=== PATIENT | female | born 1995 | race American Indian/Alaskan Native ===

== ENCOUNTER 2019-06-03 13:43 | Emergency (ER) | payer MEDICAID ==
[2019-06-03 13:59] VITALS: BP 111/66
--- NOTE | 2019-06-03 14:14 | Event Note ---
ED Screening Note Date of service: 06/03/19 Time: 14:12 ED Screening Note: 24 y/o old female comes in for left eye trauma . This initial assessment/diagnostic orders/clinical plan/treatment(s) is/are subject to change based on patients health status, clinical progression and re- assessment by fellow clinical providers in the ED. Further treatment and workup at subsequent clinical providers discretion. Patient/guardian urged not to elope from the ED as their condition may be serious if not clinically assessed and managed. Initial orders include:
[2019-06-03 14:39] LABS: HCG Qualitative,Urine Positive (Negative)
--- NOTE | 2019-06-03 15:54 | Emergency Department Report ---
ED Eye Problem HPI - General Chief complaint: Eye Problems Stated complaint: L EYE PAIN Time Seen by Provider: 06/03/19 15:40 Source: patient Mode of arrival: Ambulatory Limitations: No Limitations - History of Present Illness Initial comments: This is a 24-year-old female who presents to ED complaining of left eye redness and orbital bruising 5 days. Patient states on Saturday she accidentally slipped in fell hitting the side of her face on the metal part of her bed. Patient states*then occurs she had no loss of consciousness. Patient states she didn't have any pain at that time. Patient states the pain has worsened since Saturday. Patient states that left eye redness began a couple of days ago. Patient states that when the incident happened on Saturday she went to see her primary care physician and at that time the symptoms were not this bad. Patient denies loss of vision, blurry vision, laceration to the face or eye, headache. MD chief complaint: eye redness Location: left eye Place: home Eye Symptoms: blurry vision (resolved now) Severity: moderate Severity scale (0 -10): 5 If Pain, Quality: aching, throbbing Associated Symptoms: none - Related Data Previous Rx's Medication Instructions Recorded Last Taken Type Omeprazole [PriLOSEC] 20 mg PO BID #30 cap 09/17/14 Unknown Rx Allergies Allergy/AdvReac Type Severity Reaction Status Date / Time No Known Allergies Allergy Unverified 09/17/14 11:21 ED Review of Systems ROS: Stated complaint: L EYE PAIN Other details as noted in HPI Comment: All other systems reviewed and negative ED Past Medical Hx - Past Medical History Previous Medical History?: No - Surgical History Past Surgical History?: No - Social History Smoking Status: Never Smoker Substance Use Type: None - Medications Home Medications: Home Medications Medication Instructions Recorded Confirmed Last Taken Type Omeprazole [PriLOSEC] 20 mg PO BID #30 cap 09/17/14 Unknown Rx ED Physical Exam - General Limitations: No Limitations General appearance: alert, in no apparent distress - Head Head exam: Present: atraumatic, normocephalic - Eye Eye exam: Present: normal appearance, PERRL, EOMI, conjunctival injection (left eye) Pupils: Present: normal accommodation - ENT ENT exam: Present: normal exam, mucous membranes moist - Neck Neck exam: Present: normal inspection - Respiratory Respiratory exam: Present: normal lung sounds bilaterally. Absent: respiratory distress - Cardiovascular Cardiovascular Exam: Present: regular rate, normal rhythm. Absent: systolic murmur, diastolic murmur, rubs, gallop - GI/Abdominal GI/Abdominal exam: Present: soft, normal bowel sounds - Extremities Exam Extremities exam: Present: normal inspection - Back Exam Back exam: Present: normal inspection - Neurological Exam Neurological exam: Present: alert, oriented X3 - Psychiatric Psychiatric exam: Present: normal affect, normal mood - Skin Skin exam: Present: warm, dry, intact, normal color. Absent: rash ED Course Vital Signs 06/03/19 13:56 Temperature 98.2 F Pulse Rate 81 Respiratory 18 Rate Blood Pressure 111/66 O2 Sat by Pulse 98 Oximetry ED Medical Decision Making - Medical Decision Making 24-year-old female presents with conjunctival hemorrhage of the left eye. Patient eye muscles are intact. CT scan of the facial bones showed no fracture or dislocation or orbital fracture/bleeding. Discussed case with findings with the patient. Discussed patient to follow-up with a primary care physician. Discussed the patient has symptoms that take up to week or 2 to get better. Vision is intact bilaterally. Discuss he application to person on that sheet. Vital signs are normal patient is in no acute distress. Critical care attestation.: If time is entered above; I have spent that time in minutes in the direct care of this critically ill patient, excluding procedure time. ED Disposition Clinical Impression: Conjunctival hemorrhage of left eye Disposition: DC-01 TO HOME OR SELFCARE Is pt being admited?: No Does the pt Need Aspirin: No Condition: Stable Instructions: Conjunctivitis (ED) Additional Instructions: Make sure to follow up with the primary care physician as discussed. Apply a warm compression 3 times a day. If you have any worsening symptoms or develop new symptoms please return to ED immediately. Referrals: VANI LANCASTER MD [Primary Care Provider] - 3-5 Days [facility] [Outside] - 3-5 Days [facility] [Outside] - 3-5 Days Forms: Work/School Release Form(ED) Time of Disposition: 17:10
--- NOTE | 2019-06-03 16:46 | Cat Scan Report ---
CT MAXILLOFACIAL WITHOUT CONTRAST INDICATION / CLINICAL INFORMATION: Trauma. Patient fell sustaining facial injury. Facial pain. TECHNIQUE: All CT scans at this location are performed using CT dose reduction for ALARA by means of automated e xposure control. COMPARISON: None available. FINDINGS: FACIAL BONES: No fracture or other significant abnormality. PARANASAL SINUSES: Paranasal sinuses are free from inflammatory mucosal disease. No evidence of hemor rhage in the paranasal sinuses. NASAL CAVITY: No abnormalities are identified. The air passageways of the nasal cavity and OM U are a dequately aerated. ORBITS: The orbits have an unremarkable appearance on this noncontrast CT facial bones study. Visualized dictaphone operator space structures have an unremarkable appearance. VISUALIZED INTRACRANIAL STRUCTURES: No significant abnormality. ADDITIONAL FINDINGS: None. IMPRESSION: 1. No indication of facial fracture or other significant abnormality. Signer Name: Vinnie Alford MD Signed: 06/03/2019 4:42 PM Workstation Name: [id number]
== END 2019-06-03 17:30 | disposition home or self-care (01) ==
LOC: ED 13:43
DX: S00.12XA Contusion of left eyelid and periocular area, initial encounter (principal); H57.89 Other specified disorders of eye and adnexa; W22.8XXA Striking against or struck by other objects, initial encounter; Y93.89 Activity, other specified; Y92.89 Other specified places as the place of occurrence of the external cause; Y99.8 Other external cause status
CPT/HCPCS: 70486; 81025

== ENCOUNTER 2019-06-25 13:29 | Emergency (ER) | payer MEDICAID ==
--- NOTE | 2019-06-25 13:58 | Emergency Department Report ---
Blank Doc - Documentation Documentation: This is a 24-year-old female that presents with headache, nausea and vomiting. Stated believes its from mold. Patient stated is about 8 weeks . This initial assessment/diagnostic orders/clinical plan/treatment(s) is/are subject to change based on patient's health status, clinical progression and re- assessment by fellow clinical providers in the ED. Further treatment and workup at subsequent clinical providers discretion. Patient/guardians urged not to elope from the ED as their condition may be serious if not clinically assessed and managed. Initial orders include: 1- Patient sent to [facility] for further evaluation and treatment 2- labs
[2019-06-25 13:59] VITALS: BP 120/58
[2019-06-25 14:27] LABS: Basophils % (Auto) 0.5 % (0.0-1.8); Eosinophils # (Auto) 0.1 K/mm3 (0.0-0.4); Eosinophils % (Auto) 1.2 % (0.0-4.3); Hematocrit 37.8 % (30.3-42.9); Hemoglobin 13.1 gm/dl (10.1-14.3); Lymphocytes # (Auto) 1.9 K/mm3 (1.2-5.4); Lymphocytes % (Auto) 26.8 % (13.4-35.0); Mean Corpuscular HGB Conc 35 % (30-34); Mean Corpuscular Volume 93 fl (79-97); Monocytes # (Auto) 0.5 K/mm3 (0.0-0.8); Monocytes % (Auto) 7.2 % (0.0-7.3); Platelet Count 275 K/mm3 (140-440); Red Blood Count 4.08 M/mm3 (3.65-5.03); Red Cell Distribution Width 12.3 % (13.2-15.2)
[2019-06-25 14:54] LABS: Alanine Aminotransferase 10 units/L (7-56); Albumin 4.2 g/dL (3.9-5); BUN/Creatinine Ratio 10; Blood Urea Nitrogen 6 mg/dL (7-17); Calcium 9.2 mg/dL (8.4-10.2); Hemolysis Index 2
--- NOTE | 2019-06-25 18:07 | Emergency Department Report ---
ED General Adult HPI - General Chief complaint: Headache Stated complaint: EXPOSED TO MOLD Time Seen by Provider: 06/25/19 13:56 Source: patient Mode of arrival: Ambulatory Limitations: No Limitations - History of Present Illness Initial comments: 24-year-old Pakistani female 2 months , has relocated to a new apartment. She has discomfort has mold and seemed having some increased nausea and morning sickness since being exposed. She has an occasional cough but no wheezing, hemoptysis. No abdominal Abdomen pain. No severe headaches. Otherwise, no rashes. The department since has been treated and she is planning on going on on back, but states that when she has stopped by the apartment, she begins to have a reemergence of the symptoms. Her sons also are sharing some allergy type symptoms as well. She reports no vaginal bleeding or discharge. This time -: Gradual, week(s) Radiation: non-radiation Improves with: none Worsens with: none Associated Symptoms: nausea/vomiting. denies: confusion, chest pain, diaphoresis, fever/chills, loss of appetite, rash, seizure, shortness of breath, syncope, weakness - Related Data Previous Rx's Medication Instructions Recorded Last Taken Type Omeprazole [PriLOSEC] 20 mg PO BID #30 cap 09/17/14 Unknown Rx ALBUTEROL Inhaler (OR & NICU) 1 puff IH Q4-6H PRN #1 inha 06/25/19 Unknown Rx [ProAir HFA Inhaler] Doxylamine Succinate/Vit B6 1 each PO Q8HR PRN #10 tablet. 06/25/19 Unknown Rx [Jackie Landaverde 10-10 mg Tablet] Allergies Allergy/AdvReac Type Severity Reaction Status Date / Time No Known Allergies Allergy Verified 06/25/19 13:38 ED Review of Systems ROS: Stated complaint: EXPOSED TO MOLD Other details as noted in HPI Comment: All other systems reviewed and negative ED Past Medical Hx - Past Medical History Previous Medical History?: No - Surgical History Past Surgical History?: No - Social History Smoking Status: Never Smoker Substance Use Type: None - Medications Home Medications: Home Medications Medication Instructions Recorded Confirmed Last Taken Type Omeprazole [PriLOSEC] 20 mg PO BID #30 cap 09/17/14 Unknown Rx ALBUTEROL Inhaler (OR & NICU) 1 puff IH Q4-6H PRN #1 inha 06/25/19 Unknown Rx [ProAir HFA Inhaler] Doxylamine Succinate/Vit B6 1 each PO Q8HR PRN #10 tablet. 06/25/19 Unknown Rx [Dicmichealgis 10-10 mg Tablet] ED Physical Exam - General Limitations: No Limitations General appearance: alert, in no apparent distress - Head Head exam: Present: atraumatic, normocephalic - Eye Eye exam: Present: normal appearance - ENT ENT exam: Present: mucous membranes moist - Neck Neck exam: Present: normal inspection - Respiratory Respiratory exam: Present: normal lung sounds bilaterally. Absent: respiratory distress - Cardiovascular Cardiovascular Exam: Present: regular rate, normal rhythm. Absent: systolic murmur, diastolic murmur, rubs, gallop - GI/Abdominal GI/Abdominal exam: Present: soft, normal bowel sounds - Extremities Exam Extremities exam: Present: normal inspection - Back Exam Back exam: Present: normal inspection - Neurological Exam Neurological exam: Present: alert, oriented X3 - Psychiatric Psychiatric exam: Present: normal affect, normal mood - Skin Skin exam: Present: warm, dry, intact, normal color. Absent: rash ED Course Vital Signs 06/25/19 13:57 Temperature 97.9 F Pulse Rate 77 Respiratory 16 Rate Blood Pressure 120/58 O2 Sat by Pulse 98 Oximetry ED Medical Decision Making - Lab Data Result diagrams: 06/25/19 14:06 06/25/19 14:06 - Medical Decision Making Residual female 2 months relatively benign labs. No signs of in acute respiratory distress. Head, she is eating and drinking with no complications. States she's been out of the apartment over the last couple days now. The symptoms have significantly improved. She reports no known history of hyperactive airways or or asthma. Advised patient any to follow with with [facility]. They'll manage and follow along with her mold exposure 6 symptoms. Also advised morning sickness may also be progressing. At this stage of as well. Critical care attestation.: If time is entered above; I have spent that time in minutes in the direct care of this critically ill patient, excluding procedure time. ED Disposition Clinical Impression: Mold suspected exposure, Nausea Disposition: DC-01 TO HOME OR SELFCARE Is pt being admited?: No Does the pt Need Aspirin: No Condition: Stable Instructions: Morning Sickness (ED), Acute Nausea and Vomiting (ED), Allergies (ED) Additional Instructions: Patient should've follow-up with your [facility] for further treatment options to address your symptoms associated with possible mold exposure. Prescriptions: Doxylamine Succinate/Vit B6 [Jackie Landaverde 10-10 mg Tablet] 1 each PO Q8HR PRN #10 tablet. PRN Reason: Nausea ALBUTEROL Inhaler (OR & NICU) [ProAir HFA Inhaler] 1 puff IH Q4-6H PRN #1 inha PRN Reason: Cough Referrals: TIO SURESH MD [Primary Care Provider] - 3-5 Days
== END 2019-06-25 18:20 | disposition home or self-care (01) ==
LOC: ED 13:29
DX: O26.891 Other specified pregnancy related conditions, first trimester (principal); Z3A.00 Weeks of gestation of pregnancy not specified
CPT/HCPCS: 36415; 80053; 84702; 85025

== ENCOUNTER 2019-08-12 13:35 | Emergency (ER) | payer MEDICAID ==
[2019-08-12 15:45] LABS: HCG Qualitative,Urine Positive (Negative)
[2019-08-12 16:28] LABS: Bilirubin,Urine Negative (Negative); Color,Urine Straw (Yellow)
[2019-08-12 16:29] LABS: Blood,Urine Negative (Negative); Protein,Urine <15 mg/dL mg/dL (Negative); RBC,Urine < 1.0 /HPF (0.0-6.0); Urobilinogen,Urine < 2.0 mg/dL (<2.0)
[2019-08-12 16:30] LABS: Bacteria,Urine 2+ /HPF (Negative); Mucus,Urine Few /HPF
--- NOTE | 2019-08-12 17:18 | Emergency Department Report ---
ED Female HPI - General Chief complaint: Abdominal Pain Stated complaint: 15WKS PREG/ABD PAIN/BLEEDING Time Seen by Provider: 08/12/19 16:37 Source: patient Mode of arrival: Ambulatory Limitations: No Limitations - History of Present Illness Initial comments: Patient is a 24-year-old Syrian female who is dialysis complaining of dysuria since this morning. Patient possibly 15 weeks . Patient states she has some very mild lower abdominal cramping early this morning and when she wiped after urinating she saw some small amount of blood. Patient denies any vaginal bleeding at this time. Patient states last 2 times she urinated there was no blood present. Patient denies nausea vomiting fevers chills cough or congestion. Patient is still having some dysuria. - Related Data Previous Rx's Medication Instructions Recorded Last Taken Type Omeprazole [PriLOSEC] 20 mg PO BID #30 cap 09/17/14 Unknown Rx ALBUTEROL Inhaler (OR & NICU) 1 puff IH Q4-6H PRN #1 inha 06/25/19 Unknown Rx [ProAir HFA Inhaler] Doxylamine Succinate/Vit B6 1 each PO Q8HR PRN #10 tablet. 06/25/19 Unknown Rx [Jackie Landaverde 10-10 mg Tablet] Nitrofurantoin Weakley/M-Cryst 100 mg PO Q12HR #10 capsule 08/12/19 Unknown Rx [Macrobid CAP] Allergies Allergy/AdvReac Type Severity Reaction Status Date / Time No Known Allergies Allergy Verified 06/25/19 13:38 ED Review of Systems ROS: Stated complaint: 15WKS PREG/ABD PAIN/BLEEDING Other details as noted in HPI Comment: All other systems reviewed and negative ED Past Medical Hx - Past Medical History Previous Medical History?: No - Surgical History Past Surgical History?: No - Social History Smoking Status: Never Smoker Substance Use Type: None - Medications Home Medications: Home Medications Medication Instructions Recorded Confirmed Last Taken Type Omeprazole [PriLOSEC] 20 mg PO BID #30 cap 09/17/14 Unknown Rx ALBUTEROL Inhaler (OR & NICU) 1 puff IH Q4-6H PRN #1 inha 06/25/19 Unknown Rx [ProAir HFA Inhaler] Doxylamine Succinate/Vit B6 1 each PO Q8HR PRN #10 tablet. 06/25/19 Unknown Rx [Diclegis Dr 10-10 mg Tablet] Nitrofurantoin Weakley/M-Cryst 100 mg PO Q12HR #10 capsule 08/12/19 Unknown Rx [Macrobid CAP] ED Physical Exam - General Limitations: No Limitations General appearance: alert, in no apparent distress - Head Head exam: Present: atraumatic, normocephalic - Eye Eye exam: Present: normal appearance - ENT ENT exam: Present: mucous membranes moist - Neck Neck exam: Present: normal inspection - Respiratory Respiratory exam: Present: normal lung sounds bilaterally. Absent: respiratory distress, wheezes, rales, rhonchi - Cardiovascular Cardiovascular Exam: Present: regular rate, normal rhythm. Absent: systolic murmur, diastolic murmur, rubs, gallop - GI/Abdominal GI/Abdominal exam: Present: soft, normal bowel sounds. Absent: distended, tenderness, guarding, rebound - Extremities Exam Extremities exam: Present: normal inspection - Back Exam Back exam: Present: normal inspection - Neurological Exam Neurological exam: Present: alert, oriented X3 - Psychiatric Psychiatric exam: Present: normal affect, normal mood - Skin Skin exam: Present: warm, dry, intact, normal color. Absent: rash ED Course Vital Signs 08/12/19 14:12 Temperature 98.3 F Pulse Rate 80 Respiratory 18 Rate Blood Pressure 104/59 O2 Sat by Pulse 97 Oximetry ED Medical Decision Making - Lab Data Lab Results 08/12/19 Range/Units 15:26 Urine Color Straw (Yellow) Urine Turbidity Clear (Clear) Urine pH 7.0 (5.0-7.0) Ur Specific [place] 1.015 (1.003-1.030) Urine Protein <15 mg/dl (Negative) mg/dL Urine Glucose (UA) Negative (Negative) mg/dL Urine Ketones Negative (Negative) mg/dL Urine Blood Negative (Negative) Urine Nitrite Negative (Negative) Ur Reducing Substances Not Reportable Urine Bilirubin Negative (Negative) Urine Ictotest Not Reportable Urine Urobilinogen < 2.0 (<2.0) mg/dL Ur Leukocyte Esterase Negative (Negative) Urine WBC (Auto) 4.0 (0.0-6.0) /HPF Urine RBC (Auto) < 1.0 (0.0-6.0) /HPF U Epithel Cells (Auto) 3.0 (0-13.0) /HPF Urine Bacteria (Auto) 2+ (Negative) /HPF Urine Mucus Few /HPF Urine HCG, Qual Positive A (Negative) - Medical Decision Making Patient has negative leuk esterase and nitrites however she does have 2+ bacteria in the urine. Patient likely is early UTI and . Patient started on a short course of Macrobid. Critical care attestation.: If time is entered above; I have spent that time in minutes in the direct care of this critically ill patient, excluding procedure time. ED Disposition Clinical Impression: UTI in Qualifiers: Trimester: second trimester Qualified Code(s): O23.42 - Unspecified infection of urinary tract in , second trimester Disposition: DC- TO HOME OR SELFCARE Is pt being admited?: No Does the pt Need Aspirin: No Condition: Stable Instructions: Urinary Tract Infection in Women (ED) Referrals: PRIMARY CARE, [Primary Care Provider] - 3-5 Days Time of Disposition: 17:18
[2019-08-12 17:45] VITALS: BP 98/61
== END 2019-08-12 17:45 | disposition home or self-care (01) ==
LOC: ED 13:35
DX: O23.42 Unspecified infection of urinary tract in pregnancy, second trimester (principal); Z3A.15 15 weeks gestation of pregnancy; Z79.899 Other long term (current) drug therapy
CPT/HCPCS: 81001; 81025; 99283